=== PATIENT | male | born 1935 | race Caucasian/White ===

== ENCOUNTER 2020-02-20 15:20 | Emergency (ER) | payer OTHER, MEDICARE ==
[2020-02-20 15:56] VITALS: BMI 25.6
[2020-02-20 16:11] LABS: BASO % 1.4 % (0-2.0); EOS % 0.1 % (0-4.5); HEMATOCRIT 36.6 % (35.4-49); LYMPH % 8.7 % (8-40); MCH 31.3 pg (25.7-33.7); MCHC 32.9 g/dl (32.0-35.9); MEAN CELL VOLUME 95.2 fl (80-96); MEAN PLT VOLUME 7.9 fl (7.5-11.1); MONO % 4.1 % (3.8-10.2); NEUT % 85.7 % (42.8-82.8); PLATELET COUNT 224 K/MM3 (134-434); RBC 3.85 M/mm3 (4.00-5.60); WHITE BLOOD COUNT 11.7 K/mm3 (4.0-10.0)
[2020-02-20 16:22] LABS: INR 2.7 (0.83-1.09); PROTHROMBIN TIME (PATIENT) 31.7 SEC (9.7-13.0)
[2020-02-20 16:25] LABS: ACTIVATED PTT 32.8 SECONDS (25.2-36.5)
[2020-02-20] MEDS ORDERED: ACETAMINOPHEN 1000 MG/100 ML VIAL (NON FORMULARY) IVPB ONE (16:27)
[2020-02-20 16:36] LABS: POTASSIUM 5.1 mmol/L (3.5-5.1)
[2020-02-20 16:38] LABS: CALCIUM 8.1 mg/dL (8.5-10.1)
[2020-02-20 16:39] LABS: BLOOD UREA NITROGEN 39.8 mg/dL (7-18)
[2020-02-20 16:42] LABS: CREATININE 1.1 mg/dL (0.55-1.3)
[2020-02-20 16:43] LABS: BILIRUBIN,TOTAL 0.7 mg/dL (0.2-1); TOT PROT 6.2 g/dl (6.4-8.2)
[2020-02-20 18:57] LABS: URINE APPEARANCE TURBID; URINE BILIRUBIN NEGATIVE (NEGATIVE); URINE COLOR YELLOW; URINE GLUCOSE (UA) 100 (NEGATIVE); URINE KETONE NEGATIVE (NEGATIVE)
[2020-02-20 18:58] LABS: URINE LEUK ESTERASE 3+ (NEGATIVE); URINE NITRITE NEGATIVE (NEGATIVE); URINE PROTEIN TRACE (NEGATIVE)
[2020-02-20 18:59] LABS: EPI CELLS 37.5 /uL (0-25.1); HYALINE CASTS 4.71 /uL (0-3.1); URINE BACTERIA 45898.6 /uL (0-1359); URINE WBC 7101.3 /uL (0-25.8)
[2020-02-20 19:36] VITALS: BP 140/88; PULSE 102; TEMP 98.9
[2020-02-20] MEDS ORDERED: CEFTRIAXONE 1 GM in DEXTROSE 5%-WATER - 50 ML IVPB ONE (20:04)
[2020-02-20] MEDS ORDERED: CEFTRIAXONE 1 GM/50 ML BAG ONE (20:06)
[2020-02-20] MEDS ORDERED: HUM PROTHROMBIN CPLX(PCC)4FACT 2,000 UNIT/74.7 ML VIAL IVPB ONE (20:15)
== END 2020-02-20 20:43 | disposition short-term general hospital (02) ==
LOC: JER 15:20
PROC: 3E03329 Introduction of Other Anti-infective into Peripheral Vein, Percutaneous Approach (ICD-10-PCS; principal; 2020-02-20)
PROC: 3E033NZ Introduction of Analgesics, Hypnotics, Sedatives into Peripheral Vein, Percutaneous Approach (ICD-10-PCS; 2020-02-20)
DX: S09.90XA Unspecified injury of head, initial encounter (principal); S30.1XXA Contusion of abdominal wall, initial encounter
CPT/HCPCS: 36415; 70450-TC; 71260-TC; 72125-TC; 72128-TC; 72131-TC; 74177-TC; 80053; 81003; 85025; 85610; 85730; 86850; 86900; 86901; 93005; 93010; 99285-25; C9132; J0131; Q9967

== ENCOUNTER 2020-03-19 17:59 | Inpatient (IN) | payer OTHER, MEDICARE ==
[2020-03-19] MEDS ORDERED: ACETAMINOPHEN 1000 MG/100 ML VIAL (NON FORMULARY) IVPB ONE (18:33)
[2020-03-19] MEDS ORDERED: ACETAMINOPHEN INJECTION 100 ML IVPB ONE (18:33)
[2020-03-19 18:46] VITALS: BMI 27.1
[2020-03-19 18:58] LABS: BASO % 0.2 % (0-2.0); HEMATOCRIT 29.5 % (35.4-49); HEMOGLOBIN 9.8 GM/dL (11.7-16.9); LYMPH % 8.4 % (8-40); MCH 30.9 pg (25.7-33.7); MCHC 33.2 g/dl (32.0-35.9); MEAN PLT VOLUME 8.2 fl (7.5-11.1); MONO % 8.1 % (3.8-10.2); NEUT % 82.3 % (42.8-82.8); PLATELET COUNT 348 K/MM3 (134-434); RBC 3.17 M/mm3 (4.00-5.60); RDW 18.6 % (11.9-15.9); WHITE BLOOD COUNT 15.3 K/mm3 (4.0-10.0)
[2020-03-19 19:00] LABS: VENOUS BASE EXCESS -0.9 mmol/L (-2-2); VENOUS O2 SATURATION 49.5 % (70-80); VENOUS PCO2 46.4 mmHg (38-52); VENOUS PH 7.352 (7.310-7.410)
[2020-03-19 19:06] LABS: PROTHROMBIN TIME (PATIENT) 54.4 SEC (9.7-13.0)
[2020-03-19 19:09] LABS: ACTIVATED PTT 42.6 SECONDS (25.2-36.5)
[2020-03-19 19:16] LABS: POTASSIUM 5.3 mmol/L (3.5-5.1)
[2020-03-19 19:18] LABS: CALCIUM 8.1 mg/dL (8.5-10.1)
[2020-03-19 19:19] LABS: ALBUMIN 2.5 g/dl (3.4-5.0); BLOOD UREA NITROGEN 37.9 mg/dL (7-18)
[2020-03-19 19:22] LABS: CREATININE 1.2 mg/dL (0.55-1.3)
[2020-03-19 19:23] LABS: BILIRUBIN,TOTAL 0.6 mg/dL (0.2-1)
[2020-03-19 19:41] LABS: ERYTHROCYTE SEDIMENTATION RATE 102 mm/hr (0-20)
[2020-03-19 19:47] LABS: INR 4.7 (0.83-1.09)
[2020-03-19] MEDS ORDERED: DEXAMETHASONE SOD PHOSPHATE 4 MG/1 ML VIAL IVPUSH ONE (20:38)
[2020-03-19] MEDS ORDERED: DEXAMETHASONE SOD PHOSPHATE 4 MG/1 ML VIAL ONE (20:40)
[2020-03-19] MEDS ORDERED: CEFTRIAXONE 1,000 MG in DEXTROSE 5%-WATER - 50 ML IVPB ONE (21:55)
[2020-03-19] MEDS ORDERED: AZITHROMYCIN IVPB 500 MG in DEXTROSE 5%-WATER - 250 ML IVPB ONE (21:56)
[2020-03-19] MEDS ORDERED: CEFTRIAXONE 1 GM/50 ML BAG ONE (22:31)
[2020-03-19] MEDS ORDERED: AZITHROMYCIN IVPB 500 MG/250 ML BAG IVPB ONE (22:32)
[2020-03-20 03:00] LABS: BASO % 0.2 % (0-2.0); EOS % 0.3 % (0-4.5); HEMATOCRIT 30.1 % (35.4-49); HEMOGLOBIN 9.8 GM/dL (11.7-16.9); LYMPH % 4.9 % (8-40); MCH 30.8 pg (25.7-33.7); MCHC 32.6 g/dl (32.0-35.9); MEAN CELL VOLUME 94.5 fl (80-96); MEAN PLT VOLUME 9.5 fl (7.5-11.1); MONO % 6.5 % (3.8-10.2); NEUT % 88.1 % (42.8-82.8); PLATELET COUNT 307 K/MM3 (134-434); RBC 3.19 M/mm3 (4.00-5.60); RDW 18.8 % (11.9-15.9); WHITE BLOOD COUNT 20.6 K/mm3 (4.0-10.0)
[2020-03-20 03:54] LABS: PLATELET ESTIMATE ADEQUATE
[2020-03-20] MEDS: ACETAMINOPHEN 1000 MG/100 ML VIAL (NON FORMULARY) IVPB PRN ×3 (06:17→23:26)
[2020-03-20] MEDS ORDERED: ACETAMINOPHEN INJECTION 100 ML IVPB ONE (06:19)
[2020-03-20] MEDS ORDERED: DEXAMETHASONE SOD PHOSPHATE 4 MG/1 ML VIAL ONE (10:31)
[2020-03-20] MEDS: DEXAMETHASONE SOD PHOSPHATE 4 MG/1 ML VIAL IVPUSH SCH (10:35)
[2020-03-20] MEDS ORDERED: ASCORBIC ACID 500 MG TABLET (FP) ONE (10:45)
[2020-03-20] MEDS ORDERED: ZINC SULFATE 220 MG CAPSULE (FP) ONE (10:45)
[2020-03-20] MEDS: ZINC SULFATE 220 MG CAPSULE (FP) PO SCH (11:21)
[2020-03-20] MEDS: ASCORBIC ACID 500 MG TABLET (FP) PO SCH ×2 (11:21→21:28)
[2020-03-20] MEDS: CHOLECALCIFEROL (VIT D3) 400 UNIT (10 MCG) TABLET PO SCH (11:40)
[2020-03-20] MEDS ORDERED: DEXTROSE 5%-WATER - 50 ML IVPB ONE (17:07)
[2020-03-20] MEDS ORDERED: cefTRIAXone SODIUM 1 GM VIAL ONE (17:07)
[2020-03-20] MEDS: PANTOPRAZOLE 40 MG TABLET PO SCH (17:31)
[2020-03-20] MEDS: VANCOMYCIN HCL 1,250 MG in DEXTROSE 5%-WATER - 1,250 MG/250 ML IVPB IVPB SCH (17:31)
[2020-03-20] MEDS: AZITHROMYCIN IVPB 250 MG in DEXTROSE 5%-WATER - 250 ML IVPB SCH (17:31)
[2020-03-20] MEDS: CEFTRIAXONE 1 GM in DEXTROSE 5%-WATER - 50 ML IVPB SCH (17:31)
[2020-03-20 18:00] LABS: HEMOGLOBIN 9.4 GM/dL (11.7-16.9); MCH 30.1 pg (25.7-33.7); MCHC 32.4 g/dl (32.0-35.9); MEAN PLT VOLUME 8.4 fl (7.5-11.1); PLATELET COUNT 317 K/MM3 (134-434); RBC 3.12 M/mm3 (4.00-5.60); RDW 18.3 % (11.9-15.9); WHITE BLOOD COUNT 14.6 K/mm3 (4.0-10.0)
[2020-03-20 18:22] LABS: POTASSIUM 4.8 mmol/L (3.5-5.1)
[2020-03-20 18:26] LABS: CALCIUM 8.2 mg/dL (8.5-10.1)
[2020-03-20 18:27] LABS: ALBUMIN 2.3 g/dl (3.4-5.0); BLOOD UREA NITROGEN 32.5 mg/dL (7-18); MAGNESIUM 2.3 mg/dL (1.8-2.4)
[2020-03-20 18:29] LABS: PHOSPHOROUS 4.1 mg/dL (2.5-4.9)
[2020-03-20 18:30] LABS: CREATININE 1.1 mg/dL (0.55-1.3)
[2020-03-20 18:32] LABS: BILIRUBIN,TOTAL 0.6 mg/dL (0.2-1); TOT PROT 5.8 g/dl (6.4-8.2)
[2020-03-21] MEDS ORDERED: ACETAMINOPHEN 325 MG TABLET (FP) PO ONE (05:59)
[2020-03-21] MEDS: CHOLECALCIFEROL (VIT D3) 400 UNIT (10 MCG) TABLET PO SCH (11:44)
[2020-03-21] MEDS: ASCORBIC ACID 500 MG TABLET (FP) PO SCH ×2 (11:44→21:10)
[2020-03-21] MEDS: PANTOPRAZOLE 40 MG TABLET PO SCH (11:44)
[2020-03-21] MEDS: CEFTRIAXONE 1 GM in DEXTROSE 5%-WATER - 50 ML IVPB SCH (11:45)
[2020-03-21] MEDS: ZINC SULFATE 220 MG CAPSULE (FP) PO SCH (11:45)
[2020-03-21] MEDS: DEXAMETHASONE SOD PHOSPHATE 4 MG/1 ML VIAL IVPUSH SCH (11:45)
[2020-03-21] MEDS: AZITHROMYCIN IVPB 250 MG in DEXTROSE 5%-WATER - 250 ML IVPB SCH (14:13)
[2020-03-21] MEDS: oxyCODONE HCL 5 MG TABLET PO PRN (14:14)
[2020-03-21] MEDS: GABAPENTIN 300 MG CAPSULE PO SCH ×2 (14:14→21:10)
[2020-03-21] MEDS: INSULIN SLIDING SCALE (NOVOLOG) 1 VIAL SQ SCH (16:27)
[2020-03-21] MEDS: VANCOMYCIN HCL 1,250 MG in DEXTROSE 5%-WATER - 1,250 MG/250 ML IVPB IVPB SCH (18:29)
[2020-03-21] MEDS ORDERED: PT OWN MED DRAWER 7, Y5N ONE (20:39)
[2020-03-21] MEDS: TIZANIDINE HCL 2 MG TABLET PO SCH (21:10)
[2020-03-21 23:31] LABS: EPI CELLS 26 /uL (0-25.1); HYALINE CASTS 1 /uL (0-3.1); URINE APPEARANCE CLOUDY; URINE BACTERIA 16 /uL (0-1359); URINE BILIRUBIN NEGATIVE (NEGATIVE); URINE COLOR YELLOW; URINE GLUCOSE (UA) NEGATIVE (NEGATIVE); URINE KETONE NEGATIVE (NEGATIVE); URINE LEUK ESTERASE 2+ (NEGATIVE); URINE NITRITE NEGATIVE (NEGATIVE); URINE PROTEIN TRACE (NEGATIVE); URINE RBC 9 /uL (0-23.9); URINE WBC 260 /uL (0-25.8)
[2020-03-22] MEDS: GABAPENTIN 300 MG CAPSULE PO SCH ×3 (06:39→22:02)
[2020-03-22] MEDS: INSULIN SLIDING SCALE (NOVOLOG) 1 VIAL SQ SCH ×2 (06:39→17:49)
[2020-03-22 08:08] LABS: BASO % 0.1 % (0-2.0); HEMATOCRIT 26.8 % (35.4-49); HEMOGLOBIN 9.1 GM/dL (11.7-16.9); MCH 31.1 pg (25.7-33.7); MCHC 33.8 g/dl (32.0-35.9); MEAN CELL VOLUME 91.8 fl (80-96); MEAN PLT VOLUME 7.8 fl (7.5-11.1); MONO % 6.4 % (3.8-10.2); NEUT % 84.5 % (42.8-82.8); PLATELET COUNT 358 K/MM3 (134-434); RBC 2.92 M/mm3 (4.00-5.60); WHITE BLOOD COUNT 12.7 K/mm3 (4.0-10.0)
[2020-03-22 08:23] LABS: POTASSIUM 5.2 mmol/L (3.5-5.1)
[2020-03-22 08:34] LABS: ALBUMIN 2.1 g/dl (3.4-5.0); BLOOD UREA NITROGEN 23.9 mg/dL (7-18); CALCIUM 8.5 mg/dL (8.5-10.1)
[2020-03-22 08:37] LABS: CREATININE 0.8 mg/dL (0.55-1.3)
[2020-03-22 08:39] LABS: BILIRUBIN,TOTAL 0.7 mg/dL (0.2-1); TOT PROT 5.4 g/dl (6.4-8.2)
[2020-03-22] MEDS: oxyCODONE HCL 5 MG TABLET PO PRN ×3 (08:58→22:01)
[2020-03-22] MEDS ORDERED: cefTRIAXone SODIUM 1 GM VIAL ONE (09:03)
[2020-03-22] MEDS ORDERED: DEXTROSE 5%-WATER - 50 ML IVPB ONE (09:03)
[2020-03-22] MEDS ORDERED: PT OWN MED DRAWER 7, Y5N ONE ×4 (09:07→20:34)
[2020-03-22] MEDS: CHOLECALCIFEROL (VIT D3) 400 UNIT (10 MCG) TABLET PO SCH (09:13)
[2020-03-22] MEDS: ASCORBIC ACID 500 MG TABLET (FP) PO SCH ×2 (09:13→22:01)
[2020-03-22] MEDS: TIZANIDINE HCL 2 MG TABLET PO SCH ×2 (09:13→22:01)
[2020-03-22] MEDS: ZINC SULFATE 220 MG CAPSULE (FP) PO SCH (09:13)
[2020-03-22] MEDS: CEFTRIAXONE 1 GM in DEXTROSE 5%-WATER - 50 ML IVPB SCH (09:13)
[2020-03-22] MEDS: MULTIVITAMINS (DAILY MVI) TABLET (FP) PO SCH (09:13)
[2020-03-22] MEDS: PANTOPRAZOLE 40 MG TABLET PO SCH (09:13)
[2020-03-22] MEDS: DEXAMETHASONE SOD PHOSPHATE 4 MG/1 ML VIAL IVPUSH SCH (11:39)
[2020-03-22] MEDS: AZITHROMYCIN IVPB 250 MG in DEXTROSE 5%-WATER - 250 ML IVPB SCH (11:48)
[2020-03-22 13:31] LABS: INR 3.63 (0.83-1.09)
[2020-03-22] MEDS: VANCOMYCIN HCL 1,250 MG in DEXTROSE 5%-WATER - 1,250 MG/250 ML IVPB IVPB SCH (15:30)
[2020-03-23] MEDS: GABAPENTIN 300 MG CAPSULE PO SCH ×3 (05:51→21:42)
[2020-03-23] MEDS: INSULIN SLIDING SCALE (NOVOLOG) 1 VIAL SQ SCH ×2 (06:32→18:10)
[2020-03-23 08:27] LABS: INR 2.57 (0.83-1.09); PROTHROMBIN TIME (PATIENT) 30.2 SEC (9.7-13.0)
[2020-03-23] MEDS ORDERED: DEXTROSE 5%-WATER - 50 ML IVPB ONE (08:46)
[2020-03-23] MEDS ORDERED: cefTRIAXone SODIUM 1 GM VIAL ONE (08:46)
[2020-03-23] MEDS: CEFTRIAXONE 1 GM in DEXTROSE 5%-WATER - 50 ML IVPB SCH (09:16)
[2020-03-23] MEDS: ZINC SULFATE 220 MG CAPSULE (FP) PO SCH (09:17)
[2020-03-23] MEDS: DEXAMETHASONE SOD PHOSPHATE 4 MG/1 ML VIAL IVPUSH SCH (09:17)
[2020-03-23] MEDS: PANTOPRAZOLE 40 MG TABLET PO SCH (09:17)
[2020-03-23] MEDS: MULTIVITAMINS (DAILY MVI) TABLET (FP) PO SCH (09:17)
[2020-03-23] MEDS: ASCORBIC ACID 500 MG TABLET (FP) PO SCH ×2 (09:17→21:42)
[2020-03-23] MEDS: CHOLECALCIFEROL (VIT D3) 400 UNIT (10 MCG) TABLET PO SCH (09:17)
[2020-03-23] MEDS: TIZANIDINE HCL 2 MG TABLET PO SCH ×2 (09:25→21:42)
[2020-03-23] MEDS ORDERED: PT OWN MED DRAWER 7, Y5N ONE ×2 (10:51→21:01)
[2020-03-23] MEDS: AZITHROMYCIN IVPB 250 MG in DEXTROSE 5%-WATER - 250 ML IVPB SCH (11:07)
[2020-03-23] MEDS: oxyCODONE HCL 5 MG TABLET PO PRN ×2 (11:07→16:53)
[2020-03-23] MEDS: LOSARTAN POTASSIUM 25 MG TABLET PO SCH (11:07)
[2020-03-23] MEDS: CARVEDILOL 6.25 MG TABLET (FP) PO SCH ×2 (11:07→21:42)
[2020-03-23] MEDS ORDERED: WARFARIN NA 2 MG TABLET PO SCH (18:00)
[2020-03-24] MEDS: GABAPENTIN 300 MG CAPSULE PO SCH ×3 (05:55→21:24)
[2020-03-24] MEDS: INSULIN SLIDING SCALE (NOVOLOG) 1 VIAL SQ SCH ×2 (06:38→18:16)
[2020-03-24 07:42] LABS: INR 1.63 (0.83-1.09); PROTHROMBIN TIME (PATIENT) 19.5 SEC (9.7-13.0)
[2020-03-24] MEDS ORDERED: cefTRIAXone SODIUM 1 GM VIAL ONE (08:45)
[2020-03-24] MEDS ORDERED: DEXTROSE 5%-WATER - 50 ML IVPB ONE (08:46)
[2020-03-24] MEDS: DEXAMETHASONE SOD PHOSPHATE 4 MG/1 ML VIAL IVPUSH SCH (09:55)
[2020-03-24] MEDS: CARVEDILOL 6.25 MG TABLET (FP) PO SCH ×2 (09:55→21:24)
[2020-03-24] MEDS: MULTIVITAMINS (DAILY MVI) TABLET (FP) PO SCH (09:55)
[2020-03-24] MEDS: PANTOPRAZOLE 40 MG TABLET PO SCH (09:55)
[2020-03-24] MEDS: CHOLECALCIFEROL (VIT D3) 400 UNIT (10 MCG) TABLET PO SCH (09:55)
[2020-03-24] MEDS: LOSARTAN POTASSIUM 25 MG TABLET PO SCH (09:55)
[2020-03-24] MEDS: ZINC SULFATE 220 MG CAPSULE (FP) PO SCH (09:55)
[2020-03-24] MEDS: ASCORBIC ACID 500 MG TABLET (FP) PO SCH ×2 (09:55→21:24)
[2020-03-24] MEDS: CEFTRIAXONE 1 GM in DEXTROSE 5%-WATER - 50 ML IVPB SCH (09:56)
[2020-03-24] MEDS: TIZANIDINE HCL 2 MG TABLET PO SCH ×2 (09:56→21:24)
[2020-03-24] MEDS: AZITHROMYCIN IVPB 250 MG in DEXTROSE 5%-WATER - 250 ML IVPB SCH (09:57)
[2020-03-24] MEDS ORDERED: HEPARIN NA (PORCINE) 5,000 UNITS/ML 1ML VIAL IVPUSH PRN ×2 (10:19)
[2020-03-24] MEDS: oxyCODONE HCL 5 MG TABLET PO PRN ×2 (10:39→21:23)
[2020-03-24] MEDS ORDERED: WARFARIN NA 10 MG TABLET PO ONE ×2 (10:45→18:00)
[2020-03-24] MEDS: HEPARIN - 25,000 UNIT in SODIUM CHLORIDE 495 ML IV SCH (12:45)
[2020-03-24] MEDS ORDERED: PT OWN MED DRAWER 7, Y5N ONE ×2 (21:19→21:37)
[2020-03-25] MEDS: GABAPENTIN 300 MG CAPSULE PO SCH ×3 (08:18→21:46)
[2020-03-25 08:20] LABS: BASO % 0.1 % (0-2.0); EOS % 0.7 % (0-4.5); HEMATOCRIT 29.5 % (35.4-49); HEMOGLOBIN 9.8 GM/dL (11.7-16.9); LYMPH % 13.9 % (8-40); MCH 30.7 pg (25.7-33.7); MCHC 33.2 g/dl (32.0-35.9); MEAN CELL VOLUME 92.5 fl (80-96); MEAN PLT VOLUME 8.2 fl (7.5-11.1); NEUT % 78.3 % (42.8-82.8); PLATELET COUNT 379 K/MM3 (134-434); RBC 3.19 M/mm3 (4.00-5.60); RDW 18.1 % (11.9-15.9); WHITE BLOOD COUNT 17.2 K/mm3 (4.0-10.0)
[2020-03-25 08:27] LABS: INR 1.57 (0.83-1.09); PROTHROMBIN TIME (PATIENT) 18.8 SEC (9.7-13.0)
[2020-03-25 09:09] LABS: ALBUMIN 2.2 g/dl (3.4-5.0); BILIRUBIN,TOTAL 0.4 mg/dL (0.2-1); BLOOD UREA NITROGEN 28.5 mg/dL (7-18); CALCIUM 8.7 mg/dL (8.5-10.1); CREATININE 0.9 mg/dL (0.55-1.3); TOT PROT 5.1 g/dl (6.4-8.2)
[2020-03-25] MEDS: INSULIN SLIDING SCALE (NOVOLOG) 1 VIAL SQ SCH ×2 (09:15→19:08)
[2020-03-25] MEDS ORDERED: WARFARIN NA 10 MG TABLET PO ONE (09:42)
[2020-03-25] MEDS ORDERED: PT OWN MED DRAWER 7, Y5N ONE ×2 (09:51→21:41)
[2020-03-25] MEDS ORDERED: cefTRIAXone SODIUM 1 GM VIAL ONE (09:51)
[2020-03-25] MEDS ORDERED: DEXTROSE 5%-WATER - 50 ML IVPB ONE (09:51)
[2020-03-25] MEDS: DEXAMETHASONE SOD PHOSPHATE 4 MG/1 ML VIAL IVPUSH SCH (10:41)
[2020-03-25] MEDS: LOSARTAN POTASSIUM 25 MG TABLET PO SCH (10:42)
[2020-03-25] MEDS: MULTIVITAMINS (DAILY MVI) TABLET (FP) PO SCH (10:42)
[2020-03-25] MEDS: CHOLECALCIFEROL (VIT D3) 400 UNIT (10 MCG) TABLET PO SCH (10:42)
[2020-03-25] MEDS: ASCORBIC ACID 500 MG TABLET (FP) PO SCH ×2 (10:42→21:45)
[2020-03-25] MEDS: CARVEDILOL 6.25 MG TABLET (FP) PO SCH ×2 (10:42→21:45)
[2020-03-25] MEDS: ZINC SULFATE 220 MG CAPSULE (FP) PO SCH (10:42)
[2020-03-25] MEDS: TIZANIDINE HCL 2 MG TABLET PO SCH ×2 (10:42→21:45)
[2020-03-25] MEDS: PANTOPRAZOLE 40 MG TABLET PO SCH (10:42)
[2020-03-25] MEDS: CEFTRIAXONE 1 GM in DEXTROSE 5%-WATER - 50 ML IVPB SCH (10:43)
[2020-03-25] MEDS: oxyCODONE HCL 5 MG TABLET PO PRN ×2 (10:55→21:45)
[2020-03-25 12:16] LABS: ANISOCYTOSIS 2+; MACROCYTOSIS 0; OVALOCYTE 1+; PLATELET ESTIMATE NORMAL; TEAR DROP CELLS 1+
[2020-03-25] MEDS: HEPARIN - 25,000 UNIT in SODIUM CHLORIDE 495 ML IV SCH (12:21)
[2020-03-25] MEDS: WARFARIN NA 5 MG TABLET PO SCH (18:01)
[2020-03-26] MEDS: GABAPENTIN 300 MG CAPSULE PO SCH ×3 (06:07→22:30)
[2020-03-26] MEDS: oxyCODONE HCL 5 MG TABLET PO PRN ×3 (06:07→22:31)
[2020-03-26] MEDS: INSULIN SLIDING SCALE (NOVOLOG) 1 VIAL SQ SCH ×2 (06:45→16:37)
[2020-03-26 08:38] LABS: BASO % 0.2 % (0-2.0); EOS % 1.3 % (0-4.5); HEMATOCRIT 31.3 % (35.4-49); HEMOGLOBIN 10.2 GM/dL (11.7-16.9); LYMPH % 14.2 % (8-40); MCH 30.7 pg (25.7-33.7); MCHC 32.5 g/dl (32.0-35.9); MEAN CELL VOLUME 94.3 fl (80-96); MEAN PLT VOLUME 8.3 fl (7.5-11.1); MONO % 6.5 % (3.8-10.2); NEUT % 77.8 % (42.8-82.8); PLATELET COUNT 375 K/MM3 (134-434); RBC 3.32 M/mm3 (4.00-5.60); RDW 18.5 % (11.9-15.9); WHITE BLOOD COUNT 19.1 K/mm3 (4.0-10.0)
[2020-03-26 08:45] LABS: INR 1.94 (0.83-1.09); PROTHROMBIN TIME (PATIENT) 23.4 SEC (9.7-13.0)
[2020-03-26] MEDS ORDERED: DEXTROSE 5%-WATER - 50 ML IVPB ONE (08:57)
[2020-03-26] MEDS ORDERED: PT OWN MED DRAWER 7, Y5N ONE ×2 (08:57→22:18)
[2020-03-26] MEDS ORDERED: cefTRIAXone SODIUM 1 GM VIAL ONE (08:57)
[2020-03-26 09:02] LABS: ALBUMIN 2.3 g/dl (3.4-5.0); BLOOD UREA NITROGEN 28.5 mg/dL (7-18); CALCIUM 8.7 mg/dL (8.5-10.1); POTASSIUM 5.1 mmol/L (3.5-5.1)
[2020-03-26 09:05] LABS: ACTIVATED PTT 46.3 SECONDS (25.2-36.5)
[2020-03-26 09:06] LABS: CREATININE 0.9 mg/dL (0.55-1.3)
[2020-03-26 09:08] LABS: BILIRUBIN,TOTAL 0.4 mg/dL (0.2-1); TOT PROT 5.2 g/dl (6.4-8.2)
[2020-03-26] MEDS: TIZANIDINE HCL 2 MG TABLET PO SCH ×2 (09:43→22:30)
[2020-03-26] MEDS: LOSARTAN POTASSIUM 25 MG TABLET PO SCH (09:43)
[2020-03-26] MEDS: CARVEDILOL 6.25 MG TABLET (FP) PO SCH ×2 (09:43→22:30)
[2020-03-26] MEDS: ASCORBIC ACID 500 MG TABLET (FP) PO SCH ×2 (09:43→22:30)
[2020-03-26] MEDS: ZINC SULFATE 220 MG CAPSULE (FP) PO SCH (09:43)
[2020-03-26] MEDS: MULTIVITAMINS (DAILY MVI) TABLET (FP) PO SCH (09:43)
[2020-03-26] MEDS: CHOLECALCIFEROL (VIT D3) 400 UNIT (10 MCG) TABLET PO SCH (09:43)
[2020-03-26] MEDS: PANTOPRAZOLE 40 MG TABLET PO SCH (09:43)
[2020-03-26] MEDS: CEFTRIAXONE 1 GM in DEXTROSE 5%-WATER - 50 ML IVPB SCH (09:43)
[2020-03-26] MEDS: DEXAMETHASONE SOD PHOSPHATE 4 MG/1 ML VIAL IVPUSH SCH (09:44)
[2020-03-26 11:06] LABS: ANISOCYTOSIS 1+; MACROCYTOSIS 1+; OVALOCYTE 1+; PLATELET ESTIMATE NORMAL; TEAR DROP CELLS 1+
[2020-03-26] MEDS: HEPARIN - 25,000 UNIT in SODIUM CHLORIDE 495 ML IV SCH (11:24)
[2020-03-26] MEDS ORDERED: WARFARIN NA 5 MG TABLET PO ONE (18:00)
[2020-03-26] MEDS: WARFARIN NA 5 MG TABLET PO SCH (18:01)
[2020-03-27] MEDS: oxyCODONE HCL 5 MG TABLET PO PRN ×3 (06:42→18:33)
[2020-03-27] MEDS: GABAPENTIN 300 MG CAPSULE PO SCH ×3 (06:42→23:32)
[2020-03-27] MEDS: INSULIN SLIDING SCALE (NOVOLOG) 1 VIAL SQ SCH ×2 (06:56→17:20)
[2020-03-27 07:21] LABS: HEMATOCRIT 30.1 % (35.4-49); HEMOGLOBIN 10.1 GM/dL (11.7-16.9); MCH 31.2 pg (25.7-33.7); MCHC 33.6 g/dl (32.0-35.9); MEAN CELL VOLUME 92.8 fl (80-96); MEAN PLT VOLUME 8.3 fl (7.5-11.1); PLATELET COUNT 366 K/MM3 (134-434); RBC 3.25 M/mm3 (4.00-5.60); RDW 18.8 % (11.9-15.9); WHITE BLOOD COUNT 15.5 K/mm3 (4.0-10.0)
[2020-03-27 07:31] LABS: INR 1.99 (0.83-1.09)
[2020-03-27 07:32] LABS: ACTIVATED PTT 70.2 SECONDS (25.2-36.5)
[2020-03-27] MEDS ORDERED: cefTRIAXone SODIUM 1 GM VIAL ONE (09:51)
[2020-03-27] MEDS ORDERED: DEXTROSE 5%-WATER - 50 ML IVPB ONE (09:51)
[2020-03-27] MEDS: LOSARTAN POTASSIUM 25 MG TABLET PO SCH (10:03)
[2020-03-27] MEDS: DEXAMETHASONE SOD PHOSPHATE 4 MG/1 ML VIAL IVPUSH SCH (10:03)
[2020-03-27] MEDS: MULTIVITAMINS (DAILY MVI) TABLET (FP) PO SCH (10:03)
[2020-03-27] MEDS: CARVEDILOL 6.25 MG TABLET (FP) PO SCH ×2 (10:03→23:32)
[2020-03-27] MEDS: ZINC SULFATE 220 MG CAPSULE (FP) PO SCH (10:03)
[2020-03-27] MEDS: ASCORBIC ACID 500 MG TABLET (FP) PO SCH ×2 (10:03→23:32)
[2020-03-27] MEDS: CHOLECALCIFEROL (VIT D3) 400 UNIT (10 MCG) TABLET PO SCH (10:03)
[2020-03-27] MEDS: TIZANIDINE HCL 2 MG TABLET PO SCH ×2 (10:03→23:33)
[2020-03-27] MEDS: PANTOPRAZOLE 40 MG TABLET PO SCH (10:03)
[2020-03-27] MEDS: CEFTRIAXONE 1 GM in DEXTROSE 5%-WATER - 50 ML IVPB SCH (10:04)
[2020-03-27] MEDS: HEPARIN - 25,000 UNIT in SODIUM CHLORIDE 495 ML IV SCH (11:59)
[2020-03-27] MEDS: WARFARIN NA 3 MG TABLET PO SCH (17:21)
[2020-03-27] MEDS ORDERED: WARFARIN NA 5 MG TABLET PO ONE (18:00)
[2020-03-27] MEDS ORDERED: WARFARIN NA 5 MG TABLET PO SCH (18:00)
[2020-03-27] MEDS ORDERED: PT OWN MED DRAWER 7, Y5N ONE (23:28)
[2020-03-28] MEDS: oxyCODONE HCL 5 MG TABLET PO PRN ×2 (02:57→09:59)
[2020-03-28] MEDS: GABAPENTIN 300 MG CAPSULE PO SCH ×3 (07:17→22:54)
[2020-03-28] MEDS: INSULIN SLIDING SCALE (NOVOLOG) 1 VIAL SQ SCH ×2 (07:18→17:16)
[2020-03-28 08:29] LABS: HEMATOCRIT 29.4 % (35.4-49); HEMOGLOBIN 9.8 GM/dL (11.7-16.9); MCH 31.2 pg (25.7-33.7); MCHC 33.2 g/dl (32.0-35.9); MEAN CELL VOLUME 93.9 fl (80-96); MEAN PLT VOLUME 8.3 fl (7.5-11.1); PLATELET COUNT 324 K/MM3 (134-434); RBC 3.13 M/mm3 (4.00-5.60); RDW 18.9 % (11.9-15.9); WHITE BLOOD COUNT 13.8 K/mm3 (4.0-10.0)
[2020-03-28 09:10] LABS: INR 1.93 (0.83-1.09); PROTHROMBIN TIME (PATIENT) 23.3 SEC (9.7-13.0)
[2020-03-28] MEDS ORDERED: PT OWN MED DRAWER 7, Y5N ONE ×2 (09:21→22:51)
[2020-03-28] MEDS: MULTIVITAMINS (DAILY MVI) TABLET (FP) PO SCH (10:00)
[2020-03-28] MEDS: ZINC SULFATE 220 MG CAPSULE (FP) PO SCH (10:00)
[2020-03-28] MEDS: PANTOPRAZOLE 40 MG TABLET PO SCH (10:00)
[2020-03-28] MEDS: TIZANIDINE HCL 2 MG TABLET PO SCH ×2 (10:01→23:00)
[2020-03-28] MEDS: LOSARTAN POTASSIUM 25 MG TABLET PO SCH (10:01)
[2020-03-28] MEDS: CARVEDILOL 6.25 MG TABLET (FP) PO SCH ×2 (10:01→22:54)
[2020-03-28] MEDS: ASCORBIC ACID 500 MG TABLET (FP) PO SCH ×2 (10:02→22:54)
[2020-03-28] MEDS: CHOLECALCIFEROL (VIT D3) 400 UNIT (10 MCG) TABLET PO SCH (10:02)
[2020-03-28] MEDS: HEPARIN - 25,000 UNIT in SODIUM CHLORIDE 495 ML IV SCH (10:25)
[2020-03-28] MEDS: DEXAMETHASONE SOD PHOSPHATE 4 MG/1 ML VIAL IVPUSH SCH (17:10)
[2020-03-28] MEDS: WARFARIN NA 3 MG TABLET PO SCH (17:10)
[2020-03-28] MEDS ORDERED: WARFARIN NA 5 MG TABLET PO SCH (18:00)
[2020-03-28] MEDS ORDERED: ACETAMINOPHEN 325 MG TABLET (FP) PO ONE (22:29)
[2020-03-29] MEDS: GABAPENTIN 300 MG CAPSULE PO SCH ×4 (07:02→22:47)
[2020-03-29] MEDS: INSULIN SLIDING SCALE (NOVOLOG) 1 VIAL SQ SCH ×2 (07:02→17:12)
[2020-03-29 07:39] LABS: HEMATOCRIT 31.4 % (35.4-49); HEMOGLOBIN 10.3 GM/dL (11.7-16.9); MCHC 32.8 g/dl (32.0-35.9); MEAN CELL VOLUME 94.7 fl (80-96); MEAN PLT VOLUME 8.3 fl (7.5-11.1); PLATELET COUNT 302 K/MM3 (134-434); RBC 3.32 M/mm3 (4.00-5.60); RDW 19.4 % (11.9-15.9); WHITE BLOOD COUNT 11.6 K/mm3 (4.0-10.0)
[2020-03-29 07:48] LABS: INR 1.68 (0.83-1.09); PROTHROMBIN TIME (PATIENT) 20.4 SEC (9.7-13.0)
[2020-03-29 07:50] LABS: ACTIVATED PTT 102.8 SECONDS (25.2-36.5)
[2020-03-29] MEDS ORDERED: PT OWN MED DRAWER 7, Y5N ONE (09:08)
[2020-03-29] MEDS: DEXAMETHASONE SOD PHOSPHATE 4 MG/1 ML VIAL IVPUSH SCH (09:56)
[2020-03-29] MEDS: CARVEDILOL 6.25 MG TABLET (FP) PO SCH ×2 (09:56→22:48)
[2020-03-29] MEDS: LOSARTAN POTASSIUM 25 MG TABLET PO SCH (09:56)
[2020-03-29] MEDS: ZINC SULFATE 220 MG CAPSULE (FP) PO SCH (09:58)
[2020-03-29] MEDS: MULTIVITAMINS (DAILY MVI) TABLET (FP) PO SCH (09:58)
[2020-03-29] MEDS: CHOLECALCIFEROL (VIT D3) 400 UNIT (10 MCG) TABLET PO SCH (09:58)
[2020-03-29] MEDS: PANTOPRAZOLE 40 MG TABLET PO SCH (09:58)
[2020-03-29] MEDS: TIZANIDINE HCL 2 MG TABLET PO SCH ×2 (09:58→22:47)
[2020-03-29] MEDS: ASCORBIC ACID 500 MG TABLET (FP) PO SCH ×2 (09:58→22:47)
[2020-03-29] MEDS: HEPARIN - 25,000 UNIT in SODIUM CHLORIDE 495 ML IV SCH ×2 (11:06→16:00)
[2020-03-29] MEDS ORDERED: HEPARIN NA (PORCINE) 5,000 UNITS/ML 1ML VIAL IVPUSH PRN ×2 (14:39)
[2020-03-29] MEDS ORDERED: oxyCODONE HCL 5 MG TABLET PO PRN (14:39)
[2020-03-29] MEDS: WARFARIN NA 10 MG TABLET PO SCH (17:12)
[2020-03-29] MEDS ORDERED: WARFARIN NA 5 MG TABLET PO SCH ×2 (18:00)
[2020-03-29] MEDS ORDERED: WARFARIN NA 3 MG TABLET PO SCH ×3 (18:00)
[2020-03-30] MEDS: INSULIN SLIDING SCALE (NOVOLOG) 1 VIAL SQ SCH ×2 (06:50→17:50)
[2020-03-30] MEDS: GABAPENTIN 300 MG CAPSULE PO SCH ×3 (06:50→21:24)
[2020-03-30 09:32] LABS: INR 1.97 (0.83-1.09); PROTHROMBIN TIME (PATIENT) 23.8 SEC (9.7-13.0)
[2020-03-30 09:34] LABS: ACTIVATED PTT 59.6 SECONDS (25.2-36.5)
[2020-03-30 09:36] LABS: HEMATOCRIT 30.5 % (35.4-49); HEMOGLOBIN 10.1 GM/dL (11.7-16.9); MEAN PLT VOLUME 8.7 fl (7.5-11.1); PLATELET COUNT 286 K/MM3 (134-434); RBC 3.24 M/mm3 (4.00-5.60); RDW 19.1 % (11.9-15.9); WHITE BLOOD COUNT 12.9 K/mm3 (4.0-10.0)
[2020-03-30] MEDS ORDERED: PT OWN MED DRAWER 7, Y5N ONE ×2 (10:26→17:14)
[2020-03-30] MEDS: DEXAMETHASONE SOD PHOSPHATE 4 MG/1 ML VIAL IVPUSH SCH (10:41)
[2020-03-30] MEDS: LOSARTAN POTASSIUM 25 MG TABLET PO SCH (10:41)
[2020-03-30] MEDS: MULTIVITAMINS (DAILY MVI) TABLET (FP) PO SCH (10:41)
[2020-03-30] MEDS: ZINC SULFATE 220 MG CAPSULE (FP) PO SCH (10:41)
[2020-03-30] MEDS: PANTOPRAZOLE 40 MG TABLET PO SCH (10:41)
[2020-03-30] MEDS: CARVEDILOL 6.25 MG TABLET (FP) PO SCH ×2 (10:41→21:24)
[2020-03-30] MEDS: ASCORBIC ACID 500 MG TABLET (FP) PO SCH ×2 (10:42→21:24)
[2020-03-30] MEDS: CHOLECALCIFEROL (VIT D3) 400 UNIT (10 MCG) TABLET PO SCH (10:42)
[2020-03-30] MEDS: TIZANIDINE HCL 2 MG TABLET PO SCH ×2 (10:43→21:24)
[2020-03-30] MEDS: HEPARIN - 25,000 UNIT in SODIUM CHLORIDE 495 ML IV SCH (17:49)
[2020-03-30] MEDS: WARFARIN NA 10 MG TABLET PO SCH (17:50)
[2020-03-30] MEDS ORDERED: WARFARIN NA 3 MG TABLET PO ONE (18:00)
[2020-03-31] MEDS: GABAPENTIN 300 MG CAPSULE PO SCH ×2 (05:40→13:49)
[2020-03-31] MEDS: INSULIN SLIDING SCALE (NOVOLOG) 1 VIAL SQ SCH ×2 (06:12→17:17)
[2020-03-31 06:57] VITALS: PULSE 70
[2020-03-31] MEDS: ASCORBIC ACID 500 MG TABLET (FP) PO SCH (09:08)
[2020-03-31] MEDS: ZINC SULFATE 220 MG CAPSULE (FP) PO SCH (09:08)
[2020-03-31] MEDS: PANTOPRAZOLE 40 MG TABLET PO SCH (09:08)
[2020-03-31] MEDS: LOSARTAN POTASSIUM 25 MG TABLET PO SCH (09:08)
[2020-03-31] MEDS: CARVEDILOL 6.25 MG TABLET (FP) PO SCH (09:08)
[2020-03-31] MEDS: MULTIVITAMINS (DAILY MVI) TABLET (FP) PO SCH (09:08)
[2020-03-31] MEDS: TIZANIDINE HCL 2 MG TABLET PO SCH (09:11)
[2020-03-31] MEDS: CHOLECALCIFEROL (VIT D3) 400 UNIT (10 MCG) TABLET PO SCH (09:11)
[2020-03-31] MEDS: DEXAMETHASONE SOD PHOSPHATE 4 MG/1 ML VIAL IVPUSH SCH (10:46)
[2020-03-31 10:48] LABS: INR 2.62 (0.83-1.09); PROTHROMBIN TIME (PATIENT) 30.8 SEC (9.7-13.0)
[2020-03-31] MEDS: WARFARIN NA 10 MG TABLET PO SCH (17:17)
[2020-03-31] MEDS ORDERED: WARFARIN NA 7.5 MG TABLET (FP) PO SCH (18:00)
[2020-03-31] MEDS: HEPARIN - 25,000 UNIT in SODIUM CHLORIDE 495 ML IV SCH (18:06)
[2020-03-31 18:13] VITALS: BP 156/66; TEMP 98.3
== END 2020-03-31 19:56 | DRG 871 ==
LOC: JER 17:59 → JERBED 22:25 → J4W 03-20 13:36 → J5S 03-29 14:14
PROVIDERS: ADMIT Hospitalist; ATTEND Internal Medicine
DX: A41.9 Sepsis, unspecified organism (principal); J18.9 Pneumonia, unspecified organism; J96.01 Acute respiratory failure with hypoxia; G92 Toxic encephalopathy; I48.21 Permanent atrial fibrillation; I44.2 Atrioventricular block, complete; I24.8 Other forms of acute ischemic heart disease; I13.0 Hypertensive heart and chronic kidney disease with heart failure and stage 1 through stage 4 chronic kidney disease, or unspecified chronic kidney disease; I50.22 Chronic systolic (congestive) heart failure; J44.9 Chronic obstructive pulmonary disease, unspecified; I73.9 Peripheral vascular disease, unspecified; N18.9 Chronic kidney disease, unspecified; E78.5 Hyperlipidemia, unspecified; E11.22 Type 2 diabetes mellitus with diabetic chronic kidney disease; D63.1 Anemia in chronic kidney disease; Z95.2 Presence of prosthetic heart valve; D72.829 Elevated white blood cell count, unspecified; E11.51 Type 2 diabetes mellitus with diabetic peripheral angiopathy without gangrene; K21.9 Gastro-esophageal reflux disease without esophagitis; I25.10 Atherosclerotic heart disease of native coronary artery without angina pectoris; Z95.0 Presence of cardiac pacemaker; E66.9 Obesity, unspecified; Z68.27 Body mass index [BMI] 27.0-27.9, adult
CPT/HCPCS: 36415; 70450-TC; 71045-TC-FY; 71250-TC; 72125-TC; 80053; 81003; 82272; 82728; 82803; 82962; 83605; 83615; 83735; 84100; 84484; 85025; 85027; 85379; 85610; 85651; 85730; 86140; 86769; 86850; 86900; 86901; 87040; 87086; 87804; 87899; 93005; 93010; 97116-GP; 97162-GP; 99285-25; C9803; J0131; J1644; U0003